=== PATIENT | male | born 1980 | race Two or more races ===

== ENCOUNTER 2021-09-10 19:23 | Emergency (ER) | payer OTHER ==
[2021-09-10] MEDS ORDERED: Acetaminophen/HYDROcodone 325-5 MG Tab PO ONE (19:32)
[2021-09-10] MEDS ORDERED: Lidocaine 1% with EPINEPHrine 1:100,000 10 ML MDV INJECT ONE (19:32)
[2021-09-10] MEDS ORDERED: Diphtheria,Pertussis(Acell),Tetanus Vaccine 0.5 ML Syringe IM ONE (19:32)
[2021-09-10] MEDS ORDERED: Lidocaine 1% 10 ML MDV INJECT ONE (19:35)
--- NOTE | 2021-09-10 19:48 | EDM.PDOC ---
ED HPI GENERAL MEDICAL PROBLEM - General Chief Complaint: Laceration Stated Complaint: LT FINGER LACERATION Time Seen by Provider: 09/10/21 19:29 Source of Information: Reports: Patient History Limitations: Reports: No Limitations - History of Present Illness INITIAL COMMENTS - FREE TEXT/NARRATIVE: HISTORY AND PHYSICAL: History of present illness: Patient is a 41-year-old male who presents to the emergency room with complaints of a finger injury. Patient states he was wearing gloves and using a chain to pull a trailer when his finger got caught in the chain resulting in injury. He states he saw visible bone but immediately applied pressure to the distal tip of the finger to help control bleeding. Upon arrival there is no visible bone and minimal bleeding at this time. He does have an avulsion of the volar aspect of the left index finger of the distal phalanx. Patient denies any other digit involvement. He is able to flex and extend the fingers, and has good strength. Unsure of last tetanus update. Has good sensation of the distal tip. The nailbed is not involved. Patient denies any fever, chills, headache, change in vision, syncope or near syncope. Denies any chest pain, back pain, shortness of breath or cough. Denies any GI or symptoms. Review of systems: As per history of present illness and below otherwise all systems reviewed and negative. Past medical history: As per history of present illness and as reviewed below otherwise noncontributory. Surgical history: As per history of present illness and as reviewed below otherwise noncon tributory. Social history: See social history for further information Family history: As per history of present illness and as reviewed below otherwise noncontributory. Physical exam: General: Well developed and well nourished 41-year-old male. Alert and orientated x 3. Nontoxic in appearance and in no acute distress. Vital signs are stable and have been reviewed by me. Nursing notes were reviewed. HEENT: Atraumatic, normocephalic, pupils equal and reactive bilaterally, negative for conjunctival pallor or scleral icterus, mucous membranes moist, TMs normal bilaterally, throat clear, neck supple, nontender, trachea midline. No drooling or trismus noted. No meningeal signs. No hot potato voice noted. Lungs: Clear to auscultation bilaterally. No wheezes, rales, or rhonchi. Chest nontender. Normal work of breathing, no accessory muscles used. Heart: S1S2, regular rate and rhythm without overt murmur, gallops, or rubs. No JVD. No peripheral edema Abdomen: Soft, nondistended, nontender. Normoactive bowel sounds. Negative for masses or costovertebral tenderness. Skin: Avulsion of the volar aspect of left index finger from tip to above the interphalangeal crease. Does not involve the dorsal aspect of finger nor the nail itself. No bone is exposed. Remaining skin is intact, warm, dry. No lesions or rashes noted. Hematologic: No petechiae or purpra. Mucosa appropriate color and normal nail bed color and refill. Extremities: See SKIN for details, he moves all extremities per self without difficulty or deficits, he does have flexion and extension of the affected finger and has good sensation of the distal tip. Neurovascular unremarkable. Neuro: Awake, alert, oriented. Cranial nerves II through XII unremarkable. Cerebellum unremarkable. Motor and sensory unremarkable throughout. Exam nonfocal. Psychiatric: Mood and affect are appropriate. Normal thought process. Answering questions appropriately. Please note that the patient was seen and evaluated during the 2019 SARS-CoV-2 novel coronavirus pandemic period. Community viral transmission is ongoing at time of this encounter and the emergency department is operating under pandemic response procedures. Medical Decision Makin% lidocaine was used to perform a digital block per usual and customary procedure. Patient was adequately anesthetized. Area was thoroughly cleansed with chlorhexidine and wound wash. X-ray shows a skin irregularity involving the ventral aspect of the distal 2nd finger and fingertip, suggesting laceration/very small amputation. There is cortical irregularity involving the radial aspect the tip of the distal phalangeal tuft, suggesting loss of a very small osseous fragment. There is no evidence of radiopaque foreign body. Will call hand surgeon for recommendations for dressing and follow-up care. 1999: [facility] does not have hand surgery on-call. Patient states he would prefer not to follow up at [facility] due to differences with the hand surgeon there. Will call Robert per patient request. 2004: Spoke with the hand surgeon at [facility], Dr Larkin. Whom gave her expert recommendations for dressing and follow up care. As mentioned previously the area was thoroughly cleansed and irrigated with wound wash and chlorhexidine. Xeroform nonstick dressing was applied over the avulsed area. Patient states he lives in [place] but would like to follow-up with a hand surgeon in [place] or further. We have placed his images on a disc. I have talked with the patient about today's findings, in addition to providing specific details for plan of care. We did give him extra Xeroform dressing supplies with education. Reassessment at the time of disposition demonstrates that the patient is in no acute distress. The patient is stable for discharge, counseling was provided and we discussed in great detail signs and symptoms that would prompt them to return to the Emergency Department. He is to call tomorrow morning to set up a follow-up appointment with the surgeon of his choice. He was given several recommendations of the surrounding community in [facility]. Medication, follow up and supportive care measures were reviewed and discussed. Voices understanding and is agreeable to plan of care. Denies any further questions or concerns at this time. Diagnostics: Finger x-ray Therapeutics: Tdap, lidocaine, Jackson, wound care Prescription: Jackson, Keflex Impression: Avulsion of skin Tuft fracture Plan: 1. You were evaluated today on an emergent basis. Your skin avulsion was unable to be repaired with sutures due to the nature of injury. X-ray shows small tuff fracture on the distal tip of your finger. Keep the skin clean and dry. Wash gentle twice daily with mild soap and water. Apply the Xerofoam dressing as was demonstrated, once daily. Call tomorrow to set up follow-up care with the Hand Surgeon. Please take the antibiotic as prescribed to prevent infection. Your tetanus has been updated. 2. You can alternate Tylenol and ibuprofen as needed for pain and fever management. Jackson for moderate to severe pain. This medication may cause drowsiness so do not take it while driving or needing to be functioning outside of the house. 3. We encourage you to follow up with the hand surgeon for re-evaluation and further care/management within the next few days. 4. If your symptoms should worsen, new symptoms develop or any of the signs and symptoms we discussed should arise please return to the emergency room or call 911 (if needed). Definitive disposition and diagnosis as appropriate pending reevaluation and review of above. Left Finger-Index Pain Score (Numeric/FACES): 10 - Related Data Allergies Allergy/AdvReac Type Severity Reaction Status Date / Time No Known Allergies Allergy Verified 09/10/21 19:37 Home Meds: Home Meds Diclofenac Submicronized [Diclofenac] 35 mg PO BID 09/10/21 [History] Gabapentin [Neurontin] 400 mg PO DAILY 09/10/21 [History] Hydrocodone/Acetaminophen [HYDROcodone-Acetaminophen 5-325 MG] 1 - 2 tab PO Q4HR PRN #30 tablet 09/10/21 [Rx] Montelukast [Singulair] 5 mg PO DAILY 09/10/21 [History] Morphine 15 mg PO BID 09/10/21 [History] cephALEXin [Keflex] 500 mg PO TID 7 Days #21 cap 09/10/21 [Rx] ED ROS GENERAL - Review of Systems Review Of Systems: Comprehensive ROS is negative, except as noted in HPI. ED EXAM, SKIN/RASH Exam: See Below (See dictation) Course - Vital Signs Last Recorded V/S: Last Vital Signs Temp 97.6 F 09/10/21 19:35 Pulse 72 09/10/21 20:55 Resp 14 09/10/21 20:55 BP 134/72 09/10/21 20:55 Pulse Ox 98 09/10/21 20:55 - Orders/Labs/Meds Meds: Medications Discontinued Medications Generic Name Dose Route Start Last Admin Trade Name Kirsten PRN Reason Stop Dose Admin Hydrocodone Bitart/Acetaminophen 1 tab 09/10/21 19:32 09/10/21 19:44 Acetaminophen/Hydrocodone 325-5 Mg Tab PO 09/10/21 19:33 1 tab ONETIME ONE Administration Diphtheria/Tetanus/Acell Pertussis 0.5 ml 09/10/21 19:32 09/10/21 19:44 Diphtheria,Pertussis(Acell),Tetanus Vaccine 0.5 Ml Syringe IM 09/10/21 19:33 0.5 ml .ONCE ONE Administration Lidocaine HCl 10 ml 09/10/21 19:35 09/10/21 19:47 Lidocaine 1% 10 Ml Mdv INJECT 09/10/21 19:36 Not Given ONETIME ONE Lidocaine HCl Confirm 09/10/21 19:39 09/10/21 19:52 Lidocaine 1% 5 Ml Sdv Administered 09/10/21 19:40 Not Given Dose 5 ml .ROUTE .STK-MED ONE Lidocaine HCl 5 ml 09/10/21 19:42 09/10/21 19:42 Lidocaine 1% 5 Ml Sdv INJECT 09/10/21 19:43 5 ml ONETIME ONE Administration Lidocaine HCl Confirm 09/10/21 19:43 09/10/21 19:47 Lidocaine 1% 5 Ml Sdv Administered 09/10/21 19:44 Not Given Dose 5 ml .ROUTE .STK-MED ONE Lidocaine HCl 5 ml 09/10/21 19:48 09/10/21 19:49 Lidocaine 1% 5 Ml Sdv INJECT 09/10/21 19:49 5 ml ONETIME ONE Administration Lidocaine/Epinephrine 10 ml 09/10/21 19:32 09/10/21 19:52 Lidocaine 1% With Epinephrine 1:100,000 10 Ml Mdv INJECT 09/10/21 19:33 Not Given ONETIME ONE Departure - Departure Time of Disposition: 20:35 Disposition: Home, Self-Care 01 Clinical Impression: Open fracture of tuft of distal phalanx of finger Avulsion of skin of finger Qualifiers: Encounter type: initial encounter Qualified Code(s): S61.209A - Unspecified open wound of unspecified finger without damage to nail, initial encounter - Discharge Information Prescriptions: Hydrocodone/Acetaminophen [HYDROcodone-Acetaminophen 5-325 MG] 1 - 2 tab PO Q4HR PRN #30 tablet PRN Reason: Pain (Moderate 4-6) cephALEXin [Keflex] 500 mg PO TID 7 Days #21 cap Instructions: Finger Fracture, Adult, [id number], Laceration Care, Adult, [id number] Referrals: Kerri Rivera [employer] [Primary Care Provider] - Forms: ED Department Discharge Additional Instructions: The following information is given to patients seen in the emergency department who are being discharged to home. This information is to outline your options for follow-up care. We provide all patients seen in our emergency department with a follow-up referral. The need for follow-up, as well as the timing and circumstances, are variable depending upon the specifics of your emergency department visit. If you don't have a primary care physician on staff, we will provide you with a referral. We always advise you to contact your personal physician following an emergency department visit to inform them of the circumstance of the visit and for follow-up with them and/or the need for any referrals to a consulting specialist. The emergency department will also refer you to a specialist when appropriate. This referral assures that you have the opportunity for follow-up care with a specialist. All of these measure are taken in an effort to provide you with optimal care, which includes your follow-up. Under all circumstances we always encourage you to contact your private physician who remains a resource for coordinating your care. When calling for follow-up care, please make the office aware that this follow-up is from your recent emergency room visit. If for any reason you are refused follow-up, please contact the [facility] Emergency Department at and asked to speak to the emergency department charge nurse. [facility] [address] [place] [id number] [facility] [address] [place] [id number] Thank you for choosing the [facility] emergency department in [place] for your medical needs today. It was a pleasure caring for you. Today you were seen in the emergency department for finger injury and fracture. 1. You were evaluated today on an emergent basis. Your skin avulsion was unable to be repaired with sutures due to the nature of injury. X-ray shows small tuff fracture on the distal tip of your finger. Keep the skin clean and dry. Wash gentle twice daily with mild soap and water. Apply the Xerofoam dressing as was demonstrated, once daily. Call tomorrow to set up follow-up care with the Hand Surgeon. Please take the antibiotic as prescribed to prevent infection. Your tetanus has been updated. 2. You can alternate Tylenol and ibuprofen as needed for pain and fever management. Jackson for moderate to severe pain. This medication may cause drowsiness so do not take it while driving or needing to be functioning outside of the house. 3. We encourage you to follow up with the hand surgeon for re-evaluation and further care/management within the next few days. 4. If your symptoms should worsen, new symptoms develop or any of the signs and symptoms we discussed should arise please return to the emergency room or call [phone] (if needed).
--- NOTE | 2021-09-10 20:11 | CR ---
Indication: Distal 2nd digit injury Technique: Three views of the left 2nd finger Comparison: None Findings/Impression: There is skin irregularity involving the ventral aspect of the distal 2nd finger and fingertip, suggesting laceration/very small amputation. There is cortical irregularity involving the radial aspect the tip of the distal phalangeal tuft, suggesting loss of a very small osseous fragment. There is no evidence of radiopaque foreign body. Dictated by Heath Rosario MD @ 09/10/2021 8:11:35 PM (Electronically Signed)
== END 2021-09-10 20:55 | disposition home or self-care (01) ==
LOC: MW.ED 19:23
DX: S62.631B Displaced fracture of distal phalanx of left index finger, initial encounter for open fracture (principal); Z23 Encounter for immunization; W23.0XXA Caught, crushed, jammed, or pinched between moving objects, initial encounter
CPT/HCPCS: 73140; 90471; 90715; 99283; A9270